=== PATIENT | female | born 1975 | race Caucasian/White ===

== ENCOUNTER 2022-05-22 19:14 | Emergency (ER) | payer BC ==
[~2022-05-22] VITALS: Ht 149.9 cm; Wt 44.0 kg
[2022-05-22] MEDS ORDERED: FLUO20CA36 PO (19:28)
[2022-05-22] MEDS ORDERED: KETOROLAC TROMETHAMINE 30 MG INJ IVP ONE (19:30)
[2022-05-22] MEDS ORDERED: HYDROMORPHONE 1 MG/1 ML DISP.SYRIN IV ONE (19:30)
[2022-05-22] MEDS ORDERED: ONDANSETRON 4 MG/2 ML VIAL IV ONE (19:30)
[2022-05-22] MEDS ORDERED: ONDANSETRON 4 MG/2 ML VIAL ONE (19:34)
[2022-05-22] MEDS ORDERED: HYDROMORPHONE 1 MG/1 ML DISP.SYRIN ONE (19:34)
[2022-05-22] MEDS ORDERED: KETOROLAC TROMETHAMINE 30 MG INJ ONE (19:34)
[2022-05-22 19:42] LABS: HEMATOCRIT 35.4 % (31.2-41.9); MEAN CORPUSCULAR HEMOGLOBIN 27.1 uug (24.7-32.8); MEAN CORPUSCULAR VOLUME 81.8 fL (75.5-95.3); PLATELET COUNT (AUTO) 382 K/uL (179-408)
[2022-05-22 19:57] LABS: CARBON DIOXIDE 26 mmol/L (21-32); CHLORIDE 102 mmol/L (98-107); CREATININE 0.6 mg/dL (0.6-1.3); GLUCOSE 101 mg/dL (74-106); POTASSIUM 3.7 mmol/L (3.5-5.1); UREA NITROGEN, BLOOD 15 mg/dL (7-18)
--- NOTE | 2022-05-22 21:00 | NUR ---
Patient sleeping on gurny with no distress noted. Patient states pain is 2/10 at this time.
[2022-05-22] MEDS ORDERED: ACYC-108 PO (21:19)
[2022-05-22] MEDS ORDERED: OXYC-128 PO (21:19)
--- NOTE | 2022-05-22 21:32 | NUR ---
IV removed. Catheter intact and site benign. Pressure and 4x4 gauze applied to site. No bleeding noted.
[2022-05-22] MEDS ORDERED: LIDOCAINE HCL 1% 20 ML VIAL ONE (21:38)
--- NOTE | 2022-05-22 21:40 | NUR ---
Patient discharged to home in stable condition with taking patient home. Written and verbal after care instructions given. Patient verbalizes understanding of instructions. Stressed follow up or return to ER for worsening s/s.
[2022-05-22 21:41] VITALS: BP 128/66
== END 2022-05-22 21:41 | disposition home or self-care (01) ==
LOC: ER 19:16
DX: R09.1 Pleurisy (principal); F17.210 Nicotine dependence, cigarettes, uncomplicated; F32.A Depression, unspecified; Z79.899 Other long term (current) drug therapy
CPT/HCPCS: 99285; 96374; 71045; 96375; 80048; 85025; 85379; 84484; 36415; 93005; J1885; J2405; J1170; A4663; J3490